=== PATIENT | female | born 2000 | race African-American/Black ===

== ENCOUNTER 2022-06-22 14:27 | Emergency (ER) | payer MEDICAID, OTHER ==
[~2022-06-22] VITALS: Ht 172.7 cm; Wt 79.0 kg
[2022-06-22 14:29] VITALS: BP 119/83
[2022-06-22 15:00] LABS: BASOPHILS % 0.7 % (0.0-2.0); EOSINOPHILS % 9.7 % (0.0-5.0); HEMATOCRIT. 27.7 % (36.0-48.0); HEMOGLOBIN. 8.6 g/dL (12.0-16.0); LYMPHOCYTES % 18.8 % (20.0-50.0); MEAN CORPUSCULAR HEMOGLOBIN 17.5 pg (28.0-32.0); MEAN CORPUSCULAR VOLUME 56.1 fL (81.0-99.0); MEAN PLATELET VOLUME 8.2 fl (7.4-10.4); MONOCYTES % 9.7 % (2.0-8.0); NEUTROPHILS % 61.1 % (40.0-76.0); PLATELET 348 x1000/uL (130-400); RED BLOOD CELL COUNT 4.93 mill/uL (4.2-5.4); RED CELL DISTRIBUTION WIDTH 17.7 % (11.6-14.6)
[2022-06-22 15:10] LABS: CHLORIDE 102 mEq/L (98-107)
[2022-06-22 15:17] LABS: CLARITY URINE CLEAR (CLEAR); COLOR URINE YELLOW (YELLOW); KETONES URINE TRACE (NEGATIVE); LEUKOCYTE ESTERASE URINE TRACE (NEGATIVE); NITRITE URINE NEGATIVE (NEGATIVE); OCCULT BLOOD URINE NEGATIVE (NEGATIVE); PROTEIN URINE TRACE (NEGATIVE); UROBILINOGEN URINE 0.2 E.U./dL (0.2-1.0)
[2022-06-22 15:39] LABS: HCG SCREEN NEGATIVE
[2022-06-22] MEDS ORDERED: ACETAMINOPHEN 325MG TABLET PO PRN (17:15)
[2022-06-22 18:08] LABS: BASOPHILS % 0.7 % (0.0-2.0); EOSINOPHILS % 9.4 % (0.0-5.0); HEMOGLOBIN. 8.4 g/dL (12.0-16.0); LYMPHOCYTES % 20.5 % (20.0-50.0); MEAN CORPUSCULAR HEMOGLOBIN 17.5 pg (28.0-32.0); MEAN CORPUSCULAR VOLUME 56.1 fL (81.0-99.0); MEAN PLATELET VOLUME 8.4 fl (7.4-10.4); MONOCYTES % 9.6 % (2.0-8.0); NEUTROPHILS % 59.8 % (40.0-76.0); PLATELET 394 x1000/uL (130-400); RED BLOOD CELL COUNT 4.82 mill/uL (4.2-5.4); RED CELL DISTRIBUTION WIDTH 17.9 % (11.6-14.6)
[2022-06-22] MEDS ORDERED: ACET-2708 MT (19:13)
[2022-06-22] MEDS ORDERED: ONDA4TAB50 MT (19:13)
[2022-06-22 19:29] LABS: CHLORIDE 104 mEq/L (98-107)
[2022-06-22 19:39] LABS: B-HCG QUANTITATIVE < 1 mIU/mL (<3)
[2022-06-22 19:47] LABS: PLATELET ESTIMATE NORMAL
== END 2022-06-22 19:45 | disposition home or self-care (01) ==
LOC: ER 14:37
DX: D50.9 Iron deficiency anemia, unspecified (principal); R10.32 Left lower quadrant pain
CPT/HCPCS: 36415; 76830; 76856; 80053; 81003; 84702; 84703; 85025; 86850; 86900; 99284

== ENCOUNTER 2022-11-17 09:56 | Emergency (ER) | payer MEDICAID, OTHER ==
[~2022-11-17] VITALS: Ht 172.7 cm; Wt 79.0 kg
[~2022-11-17 09:56] MED LIST: ACET-2708 MT; ONDA4TAB50 MT
[2022-11-17 10:01] VITALS: O2SAT 99
[2022-11-17 10:48] LABS: CLARITY URINE CLEAR (CLEAR); COLOR URINE YELLOW (YELLOW); GLUCOSE URINE NEGATIVE (NEGATIVE); KETONES URINE NEGATIVE (NEGATIVE); LEUKOCYTE ESTERASE URINE 2+ (NEGATIVE); NITRITE URINE NEGATIVE (NEGATIVE); OCCULT BLOOD URINE NEGATIVE (NEGATIVE); PH URINE 7.5 (4.5-8.0); PROTEIN URINE NEGATIVE (NEGATIVE); SPECIFIC GRAVITY URINE 1.016 (1.005-1.030); UROBILINOGEN URINE 0.2 E.U./dL (0.2-1.0)
[2022-11-17 11:07] LABS: BACTERIA URINE 1+
[2022-11-17 11:10] LABS: RBC URINE 0-2 /hpf (0-2); WBC URINE 0-2 /hpf (0-2)
[2022-11-17 11:11] LABS: SQUAMOUS EPITHELIAL CELL URINE 2+ /lpf (RARE/1+)
[2022-11-17 11:12] LABS: MUCUS URINE TRACE /lpf (< = 2+)
[2022-11-17] MEDS ORDERED: LIDOCAINE HCL/PF 1% 10 MG/ML 5ML VIAL INFIL ONE (12:30)
[2022-11-17] MEDS ORDERED: METRONIDAZOLE 50MG/ML 1ML ORAL SYR(NEO) PO ONE (12:30)
[2022-11-17] MEDS ORDERED: AZITHROMYCIN 500 MG TABLET PO ONE (12:30)
[2022-11-17] MEDS ORDERED: CEFTRIAXONE SODIUM 500 MG/VIAL IM ONE (12:30)
[2022-11-17] MEDS ORDERED: METRONIDAZOLE 500MG TABLET PO SCH (12:45)
[2022-11-17] MEDS ORDERED: MICO45CR16 VG (12:46)
[2022-11-17] MEDS ORDERED: CEPH500T MT (13:17)
[2022-11-17 13:35] VITALS: BP 128/72; PULSE 96; RESP 16; TEMP 98.9
[2022-11-17] MEDS ORDERED: MICONAZOLE NITRATE 100MG VAG SUPP VG SCH (21:00)
== END 2022-11-17 13:38 | disposition home or self-care (01) ==
LOC: ER 10:10
DX: O23.591 Infection of other part of genital tract in pregnancy, first trimester (principal); B37.31 Acute candidiasis of vulva and vagina; R82.71 Bacteriuria; Z98.890 Other specified postprocedural states; Z3A.01 Less than 8 weeks gestation of pregnancy
CPT/HCPCS: 87491; 87591; 81003; 81025; 87210; 96372; 99284; J0696; J3490; Z7610